=== PATIENT | female | born 1975 | race African-American/Black ===

== ENCOUNTER 2023-05-13 11:41 | Emergency (ER) | payer OTHER ==
[2023-05-13 11:47] VITALS: BP 115/76; PULSE 75; RESP 20; TEMP 97.8; BMI 27.0
[2023-05-13] MEDS ORDERED: LIDOCAINE 5% TOPICAL PATCH TP ONE (12:10)
[2023-05-13] MEDS ORDERED: NAPROXEN 500 MG TABLET PO ONE (12:10)
[2023-05-13] MEDS ORDERED: NAPROXEN 500 MG TABLET ONE (12:11)
[2023-05-13] MEDS ORDERED: LIDOCAINE 5% TOPICAL PATCH ONE (12:11)
[2023-05-13] MEDS ORDERED: LIDOCAINE PATCH REMOVAL MC SCH (22:00)
== END 2023-05-13 14:02 | disposition home or self-care (01) ==
LOC: JERFT 11:41
DX: M54.6 Pain in thoracic spine (principal); R07.81 Pleurodynia
CPT/HCPCS: 71101-TC-RT-FY; 99283-25